=== PATIENT | male | born 1960 | race Caucasian/White ===

== ENCOUNTER 2018-09-13 18:49 | Emergency (ER) | payer MEDICARE, OTHER, SELFPAY ==
[2018-09-13 18:50] VITALS: BP 149/83; PULSE 84; RESP 16; TEMP 37.1; O2SAT 97; BMI 24.3
--- NOTE | 2018-09-13 19:44 | EKG12_ITS ---
Test Reason : Blood Pressure : / mmHG Vent. Rate : 070 BPM Atrial Rate : 070 BPM P-R Int : 150 ms QRS Dur : 090 ms QT Int : 402 ms P-R-T Axes : 052 063 051 degrees QTc Int : 434 ms Normal sinus rhythm Early repolarization Normal ECG Confirmed by FLORENTIN RUBIN, ELIZABET ([id number]), graphics editor CHIDI ZAVALA ([id number]) on 09/16/2018 11:19:49 AM Referred By: DIMITRI Confirmed By:ELIZABET LERMA MD
--- NOTE | 2018-09-13 19:48 | RAD_ITS ---
STUDY: X-RAY CHEST REASON FOR EXAM: Male, 58 years old. Palpitations TECHNIQUE: Frontal view of the chest COMPARISON: None. FINDINGS: The lungs are clear. There are no pleural effusions. There is no pneumothorax. The heart is normal in size. The visualized osseous structures are within normal limits. RAD/Chest 1 View (Portable) IMPRESSION: No acute thoracic pathology. Electronically Signed: Luis Freeman, at 20:44 EDT Tel , Service support ,
[2018-09-13] MEDS: Aspirin 81 MG TAB.CHEW 324 MG PO (20:04)
[2018-09-13 20:23] LABS: Absolute Lymphocyte Count 3.05 X10^3/ul (0.83-4.51); Absolute Neutrophil Count 4.4 X10^3/uL (2.0-7.7); Basophil# 0.03 X10^3/uL; Basophil% 0.4 % (0-1); Eosinophil# 0.12 X10^3/uL; Eosinophils% 1.5 % (0-5); Hematocrit 40.9 % (40-54); Hemoglobin 13.4 g/dl (13.0-16.5); Lymphocyte # 3.05 X10^3/ul (4.0); Lymphocyte % 36.9 % (19-41); Mean Corp Hgb Conc 32.8 g/gl (32-36); Mean Corpuscular Hgb 32.4 pg (27.0-32.0); Mean Corpuscular Volume 98.8 fL (80-94); Mean Platelet Vol. 9.8 fl (6.2-12.0); Monocyte# 0.62 X10^3/uL; Monocyte% 7.5 % (0-10); Neutrophil # 4.43 X10^3/uL (2.7-7.7); Neutrophil % 53.6 % (47-70); POSITIVE COUNT NO; POSITIVE DIFFERENTIAL NO; POSITIVE MORPHOLOGY NO; Platelet Count 275 K/mm3 (150-450); RBC Distribution Width CV 13.3 % (11.6-14.6); RBC Distribution Width SD 48.5 fl (35.1-43.9); Red Blood Count 4.14 M/mm3 (4.6-6.2); White Blood Count 8.3 K/mm3 (4.4-11.0)
[2018-09-13 20:38] LABS: Anion Gap 6 (5-15); BUN 9 mg/dL (7-18); BUN/Creat Ratio 11.2 RATIO (10-20); Calcium,Total 8.8 mg/dL (8.5-10.1); Chloride 108 mmol/L (98-107); Creatinine, Serum 0.81 mg/dL (0.70-1.30); EST Glomerular Filtration Rate 105 mL/min (>60); Est Glom Filt Rate - Afr Amer 127 mL/min (>60); Estimated Creatinine Clearance 116.99 ml/min; Glucose 98 mg/dL (74-106); Potassium 3.9 mmol/L (3.5-5.1); Sodium Level 141 mmol/L (136-145)
--- NOTE | 2018-09-13 20:55 | ED.VISSUMM ---
- ER Visit Summary Date of Service: 09/13/18 Chief Complaint: Chest pain, palpitations History of Present Illness: The patient is a 58 M who has had months of chest pain and palpitations. The pain is on the left side of the chest. He describes as uncomfortable. He states he feels like his heart skips a beat. He denies any history of any significant coronary disease. He denies shortness of breath. No other symptoms. Physical Examination: Vital signs reviewed. HEENT exam unremarkable. Heart is regular rate and rhythm without murmurs. Lungs are clear to auscultation. Abdomen is soft and nontender. Extremities reveal no edema. Peripheral pulses are equal. Skin exam normal. Neurologic exam normal. Test Results: EKG is normal sinus rhythm with no ST changes. Laboratory studies are normal except for chloride of 108 Emergency Department Course and Treatment: The patient's workup here is negative. He has had months of symptoms. He was medicated with aspirin. I do not feel any further workup is necessary. Patient will be discharged to follow-up with his primary care physician Treatment Plan: [] Disposition: Discharge Impression: Chest pain, palpitations This note was generated with [employer] dictation software. It may contain incorrect words, spelling, and punctuation that were not noted in review of the chart prior to signing ED Disposition - Plan for ED Patient: Disposition: Home or Assisted Living Chief Complaint: Palpitations Instructions: ED Palpitations Referrals: Care Physician,No Primary [Primary Care Provider] -
[2018-09-13 21:01] VITALS: BP 134/82; PULSE 74; RESP 14; O2SAT 95
== END 2018-09-13 21:07 | disposition home or self-care (01) ==
PROVIDERS: Emergency Provider Emergency Medicine
DX: R07.9 Chest pain, unspecified (principal); R00.2 Palpitations; Z72.0 Tobacco use
CPT/HCPCS: 71045; 80048; 84484; 85025; 93005; 99284; A4216